=== PATIENT | male | born 1950 | race Caucasian/White ===

== ENCOUNTER 2017-11-03 09:08 | Emergency (ER) | payer OTHER | END 2017-11-03 10:23 | disposition home or self-care (01) | LOC: FTE 09:08 | DX: J02.9 Acute pharyngitis, unspecified (principal); I25.10 Atherosclerotic heart disease of native coronary artery without angina pectoris; Z79.82 Long term (current) use of aspirin; Z98.61 Coronary angioplasty status | CPT/HCPCS: 99283 ==

== ENCOUNTER 2018-01-10 22:51 | Observation (INO) | payer OTHER ==
[2018-01-10 23:12] LABS: ADD MAN DIFF? NO
[2018-01-10 23:13] LABS: WHITE BLOOD COUNT 6.5 10^3/ul (4.8-10.8)
[2018-01-10 23:13] LABS: BASOPHILS % 0.3 % (0.0-2.0); EOSINOPHILS # 0.1 10^3/ul (0.0-0.5); EOSINOPHILS % 0.9 % (0.0-7.0); HEMATOCRIT 44.5 % (42.0-52.0); LYMPHOCYTES % 45.9 % (15.0-51.0); MEAN CORPUSCULAR HEMOGLOBIN 31.1 pg (29.0-33.0); MEAN CORPUSCULAR HGB CONC 33.7 g/dl (32.0-37.0); MEAN CORPUSCULAR VOLUME 92.1 fl (82.0-101.0); MEAN PLATELET VOLUME 10.6 fl (7.4-10.4); MONOCYTE # 0.9 10^3/ul (0.3-0.9); NEUTROPHIL # 2.6 10^3/ul (1.6-7.5); NEUTROPHILS % 39.7 % (39.0-77.0); PLATELET COUNT 174 10^3/UL (140-415); RED BLOOD COUNT 4.83 10^6/ul (4.70-6.10); RED CELL DISTRIBUTION WIDTH 12.2 % (11.5-14.5)
[2018-01-10 23:55] LABS: ANION GAP 16 (8-16); BLOOD UREA NITROGEN 17 mg/dl (7-20); CALCIUM 9.4 mg/dl (8.4-10.2); CARBON DIOXIDE 29 mmol/L (21-31); CHLORIDE 103 mmol/L (97-110); GLUCOSE 95 mg/dl (70-220); POTASSIUM 3.9 mmol/L (3.5-5.1); SODIUM 144 mmol/L (135-144); TROPONIN-I < 0.012 ng/ml (0.00-0.12)
[2018-01-11] MEDS: ASPIRIN 325 MG TAB PO (02:09)
[2018-01-11] MEDS ORDERED: MAGNESIUM HYDROXIDE 30ML CUP PO (02:30)
[2018-01-11] MEDS ORDERED: morphine 2 MG INJ IV (02:30)
[2018-01-11] MEDS ORDERED: DOCUSATE SODIUM 100 MG CAP PO (02:30)
[2018-01-11] MEDS ORDERED: ZOLPIDEM 5 MG TAB PO (02:30)
[2018-01-11] MEDS ORDERED: LORAZEPAM 2 MG INJ IV (02:30)
[2018-01-11] MEDS ORDERED: ACETAMINOPHEN 325 MG TAB PO (02:30)
[2018-01-11] MEDS ORDERED: HYDROCODONE/APAP (5/325) TAB PO (02:30)
[2018-01-11] MEDS ORDERED: ONDANSETRON 4 MG INJ IV (02:30)
[2018-01-11] MEDS: PANTOPRAZOLE 40 MG INJ IV ×2 (03:09→06:00)
[2018-01-11] MEDS: SOD CHLORIDE 0.9% 1,000 ML IV (03:09)
[2018-01-11 04:04] LABS: CREATINE KINASE 23 IU/L (23-200)
[2018-01-11 04:15] LABS: B-TYPE NATRIURETIC PEPTIDE 45 PG/ML (0-125)
[2018-01-11 04:17] LABS: CK INDEX 2.1
[2018-01-11 04:20] LABS: CK-MB 0.49 ng/ml (0.0-2.4); TROPONIN-I < 0.012 ng/ml (0.00-0.12)
[2018-01-11 05:55] LABS: CK-MB 0.61 ng/ml (0.0-2.4); TROPONIN-I < 0.012 ng/ml (0.00-0.12)
[2018-01-11 06:05] LABS: CK INDEX 2.9; CREATINE KINASE 21 IU/L (23-200)
[2018-01-11] MEDS: morphine 4 MG/ML VIAL IV (06:45)
[2018-01-11] MEDS: ONDANSETRON 4 MG INJ IV (06:46)
[2018-01-11] MEDS: CALCIUM CARBONATE 500 MG CHEW TAB PO ×3 (06:46→14:06)
[2018-01-11] MEDS ORDERED: FAMOTIDINE 20 MG TAB PO (09:00)
[2018-01-11] MEDS ORDERED: CALCIUM CARBONATE 500 MG CHEW TAB PO (09:00)
[2018-01-11] MEDS ORDERED: ASPIRIN 81 MG TAB PO (09:00)
[2018-01-11] MEDS: REGADENOSON 0.4 MG/5 ML SYG (09:19)
[2018-01-11 09:59] LABS: ADD UMIC NO; UR ASCORBIC ACID NEGATIVE (NEGATIVE); UR BILIRUBIN (Dip) NEGATIVE (NEGATIVE); UR BLOOD (Dip) NEGATIVE (NEGATIVE); UR CLARITY CLEAR (CLEAR); UR COLOR YELLOW (YELLOW); UR GLUCOSE (Dip) NEGATIVE (NEGATIVE); UR KETONES (Dip) NEGATIVE (NEGATIVE); UR LEUKOCYTE ESTERASE (Dip) NEGATIVE Leu/ul (NEGATIVE); UR NITRITE (Dip) NEGATIVE (NEGATIVE); UR SPECIFIC GRAVITY (Dip) 1.017 (1.003-1.030); UR TOTAL PROTEIN (Dip) NEGATIVE (NEGATIVE); UR UROBILINOGEN (Dip) NEGATIVE (NEGATIVE)
[2018-01-11] MEDS: ASPIRIN 81 MG TAB PO (10:01)
[2018-01-11] MEDS: METOPROLOL 25 MG TAB PO (10:06)
[2018-01-11 10:13] LABS: AMPHETAMINE/METHAMPHETAMINE Negative (NEGATIVE); BARBITURATES Negative (NEGATIVE); BENZODIAZEPINES Negative (NEGATIVE); CANNABINOIDS Negative (NEGATIVE); COCAINE Negative (NEGATIVE); OPIATES Negative (NEGATIVE)
[2018-01-11] MEDS: LORATADINE 10 MG TAB PO (10:20)
[2018-01-11 12:46] LABS: CREATINE KINASE 24 IU/L (23-200)
[2018-01-11 12:50] LABS: CK INDEX 2.1
[2018-01-11 12:54] LABS: TROPONIN-I < 0.012 ng/ml (0.00-0.12)
[2018-01-11] MEDS ORDERED: ATORVASTATIN 40 MG TAB PO (21:00)
== END 2018-01-11 15:49 | disposition home or self-care (01) ==
LOC: E/R 22:51 → MS3 01-11 02:21
DX: R07.89 Other chest pain (principal); I25.10 Atherosclerotic heart disease of native coronary artery without angina pectoris; Z95.5 Presence of coronary angioplasty implant and graft; E78.00 Pure hypercholesterolemia, unspecified; E78.5 Hyperlipidemia, unspecified; I10 Essential (primary) hypertension; F17.200 Nicotine dependence, unspecified, uncomplicated; Z79.82 Long term (current) use of aspirin; I70.0 Atherosclerosis of aorta
CPT/HCPCS: 36415; 71045; 78452; 80048; 80307; 81003; 82550; 82553; 83880; 84484; 85025; 93005; 93017; 93306; 96374; 99285-25

== ENCOUNTER 2019-07-09 10:21 | Emergency (ER) | payer SELFPAY, OTHER | END 2019-07-09 12:45 | disposition left against medical advice (07) | LOC: E/R 12:45 | DX: Z53.21 Procedure and treatment not carried out due to patient leaving prior to being seen by health care provider (principal) ==